=== PATIENT | female | born 1965 | race Caucasian/White ===

== ENCOUNTER 2017-12-10 10:42 | Emergency (ER) | payer OTHER ==
[2017-12-10 10:59] LABS: #Eosinphils 0.1 thou/uL (0.0-0.7); #Lymphocytes 1.3 thou/uL (1.20-3.40); #Monocytes 0.3 thou/uL (0.11-0.59); #Neutrophils 4.4 thou/uL (1.40-6.50); %Basophils 0.6 % (0.0-1.0); %Eosinophils 1.5 % (0.0-10.0); %Lymphocytes 21.5 % (21.0-51.0); %Monocytes 4.3 % (0.0-10.0); Hemoglobin 14.5 g/dL (12.0-16.0); Mean Corpuscular HGB CONC 35.5 g/dL (32.0-36.0); Mean Corpuscular Hemoglobin 32.7 pg (27.0-31.0); Mean Corpuscular Volume 92.1 fL (78.0-98.0); Mean Platelet Volume 6.3 fL (7.4-10.4); Platelet Count 187 thou/uL (130-400); RBC Distribution Width 11.4 % (11.5-14.5); Red Blood Cell (RBC) Count 4.44 mill/uL (4.20-5.40); White Blood Cell (WBC) Count 6.1 thou/uL (4.8-10.8)
[2017-12-10 11:16] LABS: ALT (SGPT) 20 U/L (8-55); AST (SGOT) 17 U/L (5-34); Albumin 4.2 g/dL (3.5-5.0); Alkaline Phosphatase 112 U/L (40-150); Anion Gap 17 mmol/L (10-20); BUN (Urea Nitrogen) 13 mg/dL (9.8-20.1); Bilirubin, Total 0.7 mg/dL (0.2-1.2); CK (CPK) 186 U/L (29-168); Calc. Creatinine Clearance 0 mL/min (70-130); Carbon Dioxide 17 mmol/L (22-29); Chloride 110 mmol/L (98-107); Estimated GFR-MDRD 64; Globulin 2.4 g/dL (2.4-3.5); Glucose 123 mg/dL (70-105); Lipase 37 U/L (8-78); Potassium 4.3 mmol/L (3.5-5.1); Protein, Total 6.6 g/dL (6.0-8.3); Sodium 140 mmol/L (136-145)
--- NOTE | 2017-12-10 11:26 | CT ---
NONCONTRAST CT OF THE BRAIN: INDICATION: Stroke activation. Last seen normal at 0900, now with vomiting, aphasia, and history of aneurysmal c lipping. COMPARISON: None. FINDINGS: There is a large left MCA distribution infarct. There is a left frontotemporal craniotomy. There ar e aneurysmal clips seen within the left sylvian fissure. There is ex vacuo dilatation of the left la teral ventricle. No acute infarct, hemorrhage, or hydrocephalus is present. IMPRESSION: 1. No acute abnormality. 2. Large left middle cerebral artery distribution infarct. 3. Let frontotemporal craniotomy with multiple aneurysmal clips seen within the left sylvian fissure . Findings were called to Dr. Dotson at 10:54 a.m. on 12/10/17. CODE CR POS: [facility]
[2017-12-10 11:33] LABS: CKMB 1.4 ng/mL (0-6.6)
[2017-12-10 11:36] LABS: Troponin I Less than 0.010 ng/mL (< 0.028)
--- NOTE | 2017-12-10 11:44 | RAD ---
FRONTAL VIEW CHEST: INDICATION: Altered mental status, stroke. FINDINGS: There is no evidence of consolidation, effusion, or pneumothorax. The cardiac silhouette is accentua karrie by portable technique. No free air beneath the hemidiaphragms. IMPRESSION: No focal consolidation. POS: [facility]
--- NOTE | 2017-12-10 11:49 | CT ---
CTA OF THE HEAD AND NECK: INDICATION: History of aneurysmal clipping now with aphasia, vomiting, and left-sided weakness. TECHNIQUE: Multiple CTA images were obtained of the head and neck utilizing IV contrast and 3D reformatted imagi ng. Axial, coronal, and sagittal reformatted images were constructed from the raw data. Comparisons are mad with a CT of the brain without contrast dated 12/10/17. FINDINGS: No hemodynamically significant stenosis, occlusion, or aneurysmal formation is seen involving the gre at vessels of the neck. There are multiple aneurysmal clips seen within the left sylvian fissure. There is long-segment narr owing of the left M1 branch, likely postprocedural in nature. There is a large area of encephalomala maría involving the left MCA distribution, particularly involving the left temporal lobe, left frontal lobe, and portions of the left parietal lobe. There is a 2.5 mm superior projecting aneurysm off of the right MCA bifurcation on image 37 of the co naseem CTA of the head series and image 204 of the axial CTA head series. No large-vessel thrombus is seen involving the right M1 branch. The visualized basilar and intracranial vertebral arteries appear widely patent. Visualized soft tissues of the neck appear within normal limits. No lymphadenopathy is evident. No acute osseous abnormality is evident. Visualized lung apices are clear. IMPRESSION: 1. No large-vessel thrombus demonstrated. 2. Long segment of narrowing involving the left M1 branch, likely postprocedural in nature related t o patient's aneurysmal clipping on the left side. There is a large left MCA distribution infarct. 3. 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 Neurosurgic al followup and a followup CTA examination in 12 months is recommended. 4. Findings are called to Dr. Dotson at 11:17 a.m. on 12/10/17. CODE CR POS: [facility]
[2017-12-10 13:09] LABS: Bilirubin Negative (Negative); Blood, Urine Negative (Negative); Clarity CLEAR (Clear); Glucose, Urine (Dipstick) Negative (Negative); Leukocyte Negative (Negative); Nitrite Negative (Negative); Protein, Urine (Dipstick) Negative (Neg-Trace); Urobilinogen 0.2 mg/dL (0.2-1.0); pH, Urine 6.5 (5.0-9.0)
[2017-12-10 13:43] LABS: Specific Gravity, Urine 1.045 (1.002-1.036)
[2017-12-10] MEDS ORDERED: levETIRAcetam In NaCl (Iso-Os) 1,000 MG in Premix Bag 1 BAG IVPB ONE (14:30)
[2017-12-10] MEDS ORDERED: ISOVUE-370 76%-LOCM 1 ML ONE (14:50)
[2017-12-10] MEDS ORDERED: Ketorolac Tromethamine 30 MG/ML VIAL ONE (15:27)
[2017-12-10 15:47] LABS: Lactic Acid 1.3 mmol/L (0.5-2.2)
[2017-12-10] MEDS ORDERED: Ondansetron ODT 8 MG TAB ONE (16:10)
== END 2017-12-10 16:15 | disposition short-term general hospital (02) ==
LOC: ERS 10:42
DX: I67.1 Cerebral aneurysm, nonruptured (principal); G45.9 Transient cerebral ischemic attack, unspecified; I47.1 Supraventricular tachycardia; Z79.899 Other long term (current) drug therapy
CPT/HCPCS: 36415; 36416; 70450; 70496; 70498; 71045; 80053; 81003; 82550; 82553; 83605; 83690; 83880; 84146; 84484; 85025; 93005; 96361; 96365; 96375; J1885; J1953